=== PATIENT | male | born 1955 | race Caucasian/White ===

== ENCOUNTER → 2019-01-07 | Outpatient (REF) | payer OTHER ==
[~2019-01-07] MED LIST: ASPIRIN EC81 MG PO; ATENOLOL50 MG PO; BUMETANIDE1 MG PO; CIPROFLOXACN500 MG PO; DILAUDID 2MG2 MG/TA1 PO; FLOMAX0.4 M1 PO; GLIPIZIDE10 MG PO; HUMULIN N1 ML SC; JANTOVEN2 MG PO; JANTOVEN2.5 MG PO; KLOR-CON 1010 ME1 PO; LANOXIN0.25 MG PO; LOPID600 MG PO; LOVASTATIN20 MG PO; METFORMIN850 MG PO; NIACIN500 MG PO; NOVOLIN R IJ; OMEPRAZOLE20 MG PO; PERCOGESI1 PO; RANITIDINE150 MG PO; SPIRONOLACT25 MG PO; TERAZOSIN1 MG PO
[2019-01-07 12:15] LABS: INTERNATIONAL NORMALIZED RATIO 1.1 RATIO (0.7-1.3); PROTHROMBIN TIME 11.6 SECONDS (9.0-12.5)
== END | disposition home or self-care (01) | DRG 950 ==
LOC: LABSPEC 11:51
PROVIDERS: ATTEND Internal Medicine
DX: Z51.81 Encounter for therapeutic drug level monitoring (principal); Z79.01 Long term (current) use of anticoagulants

== ENCOUNTER 2020-10-02 08:15 | Inpatient (IN) | payer OTHER ==
[~2020-10-02] VITALS: Ht 162.6 cm; Wt 100.0 kg
--- NOTE | 2020-10-02 08:15 | NUR ---
PATIENT TO ROOM VIA EMS UNDERGUARD AND PHYSICIAN AT BEDSIDE FOR EVAL
[2020-10-02 08:56] LABS: IMMATURE GRANULOCYTES 0.5 % (0.0-5.0); MEAN CELL VOLUME 85.4 fL CALC (80.0-100.0); MEAN CORPUSCULAR HGB 28.5 pG CALC (26.0-32.0); MEAN CORPUSCULAR HGB CONC 33.4 g/dL CAL (32.0-36.0); NEUT# 6.37 thou/uL (1.82-7.42); RED BLOOD COUNT 4.45 mill/uL (4.70-6.10); RED CELL DISTRI WIDTH 13.2 % (11.5-15.5)
[2020-10-02 08:58] LABS: HEMOGLOBIN 12.7 g/dl (14.0-18.0)
[2020-10-02 09:12] LABS: ANION GAP 12 (6-22 (CALC)); BUN 17 mg/dL (8-23); BUN/CREATININE RATIO 17 (12-20 (CALC)); CARBON DIOXIDE 24 mmol/l (22-30); CHLORIDE 106 mmol/l (95-108); GFR > 60 ML/MIN (>=60 (CALC)); GFR FOR AFR.AMER. > 60 ML/MIN (>=60 (CALC)); POTASSIUM 3.4 mmol/l (3.5-5.1); SGOT/AST 57 u/l (19-48); SODIUM 140 mmol/l (137-146)
[2020-10-02 09:14] LABS: ALBUMIN 3.6 g/dL (3.2-5.0); ALKALINE PHOSPHATASE 64 u/l (38-126); BILIRUBIN, TOTAL 0.8 mg/dL (0.0-1.4); TOTAL PROTEIN 6.8 g/dL (6.3-8.2)
--- NOTE | 2020-10-02 09:30 | NUR ---
PT ARRIVED BY EMS WITH SOB. PT WAS ON NRB AT 15L OF O2. LUNGS WHEEZING BILAT. DENIES ANY CHEST PAIN. STATES HE WAS DX YEST WITH COVID. AFIBRILE. INCREASED SOB WITH EXCERTION. BREATHING AT 23. A 98% ON O2.
[2020-10-02] MEDS ORDERED: GABAPENTIN250 MG/5 M PO (10:12)
[2020-10-02] MEDS ORDERED: TOPROL XL25 M1 PO (10:12)
[2020-10-02] MEDS ORDERED: BUMETANIDE1 MG PO (10:13)
[2020-10-02] MEDS ORDERED: WARFARIN3 MG PO (10:13)
[2020-10-02] MEDS ORDERED: ATORVASTATIN CA20 MG PO (10:13)
[2020-10-02] MEDS ORDERED: FENOFIBRATE160 MG PO (10:13)
[2020-10-02] MEDS ORDERED: DECADRON6 MG PO (10:14)
[2020-10-02] MEDS ORDERED: MOTRIN400 MG/TAB PO (10:15)
[2020-10-02] MEDS ORDERED: MUCUS & CH100 MG/5 M PO (10:15)
--- NOTE | 2020-10-02 10:28 | NUR ---
CALLED ARLETTE FOR REPORT, NURSE WITH A PT AT THE MOMENT
[2020-10-02] MEDS ORDERED: HUMULIN 70/30 SC ×2 (10:36→10:44)
--- NOTE | 2020-10-02 11:13 | NUR ---
GAVE REPORT TO NURSE IN MED SURG
--- NOTE | 2020-10-02 11:35 | NUR ---
PT ARRIVED TO MS2 VIA STRETCHER ACCOMPANIED BY NURSE AND GUARD, NO SIGNS OF DISTRESS NOTED, RESP EVEN AND UNLABORED. ORIENTED PT TO ROOM AND CALL LIGHT, DISCUSSED POC, PT [place], MEDICATED PER MAR. PT IS 8L HI VINOD NC HUMIDIFIED. ADMISSION ASSESSMENT COMPLETED, CALL LIGHT IN REACH,CONTINUE TO MONITOR.
--- NOTE | 2020-10-02 11:48 | NUR ---
PT TRANSPORTED TO [facility] STABLE AND IN NO DISTRESS AND I WAS ACCOMPANIED BY OFFICERS WHO WAS AT HIS BEDSIDE THE WHOLE VISIT. CARE ASSUMED TO NURSE Admission Note Report Given to: Transported by: Wheelchair X Stretcher Transported with: X Nurse Transporter X Patent IV X O2 X Print Journalist Location: ICU X MS2
[2020-10-02 12:04] VITALS: BP 123/76
[2020-10-02 12:18] LABS: INTERNATIONAL NORMALIZED RATIO 3.7 RATIO (0.7-1.3); PROTHROMBIN TIME 34.4 SECONDS (9.0-12.5)
[2020-10-02 15:10] VITALS: BP 124/72
--- NOTE | 2020-10-02 16:00 | NUR ---
PT VOICES NO NEEDS OR COMPLAINTS AT THIS TIME, CALL LIGHT IN REACH,CONTINUE TO MONITOR.
--- NOTE | 2020-10-02 19:30 | NUR ---
PT AWAKE RESTING IN BED WATCHING T.V. PT IS ALERT AND ORIENTED X4. O2 N/C ON HIGH VINOD AT 8L. O2 SAT 97%. NO DISTRESS NOTED. PT DOES BECOME SHORT OF BREATH WITH EXERTION. LUNGS REVEAL WHEEZES AND DIMINISHED BREATH SOUNDS. ABD SOFT AND NONDISTENDED WITH BOWEL SOUNDS PRESENT. NO LOWER EXT EDEMA NOTED. PEDAL PULSES PALPATED BILAT. TELE AFIB HR CONTROLLED. IV SITE PATENT IN LEFT A.C WITH NSS AT 100CC/HR. PT DENIES ANY DISCOMFORT OR SHORTNESS OF BREATH . WILL CONTINUE TO CLOSELY MONITOR. CUFFED TO THE BED. GUARD AT BEDSIDE. WILL CONTINUE TO CLOSELY MONITOR. FREQUENT ROUNDS MADE. CALL LUGO WITHIN REACH.
[2020-10-02 20:25] VITALS: BP 130/76
--- NOTE | 2020-10-02 22:30 | NUR ---
RESTING IN BED WATCHING T.V. RESP EVEN AND UNLABORED. NO DISTRESS NOTED. IV SITE IS PATENT. FREQUENT ROUNDS MADE. CALL LUGO WITHIN REACH.
[2020-10-03 00:15] VITALS: BP 131/92
--- NOTE | 2020-10-03 00:30 | NUR ---
RESTING IN BED WITH EYES CLOSED. RESP EVEN AND UNLABORED. NO DISTRESS NOTED. O2 NC HIGH VINOD AT 8L. IV SITE PATENT. FREQUENT ROUNDS MADE. CALL LUGO WITHIN REACH.
--- NOTE | 2020-10-03 02:35 | NUR ---
PT AWAKE RESTING IN BED. RESP EVEN AND UNLABORED. NO DISTRESS NOTED . PT GIVEN A WARM BLANKET. IV SITE PATENT WITH NO REDNESS OR SWELLING. GUARD AT BEDSIDE. PT DENIES ANY DIFFICULTY BREATHING OR SHORTNESS OF BREATH. WILL CONTINUE TO CLOSELY MONITOR. FREQUENT ROUNDS MADE. CALL LUGO WITHIN REACH.
[2020-10-03 03:50] VITALS: BP 135/72
--- NOTE | 2020-10-03 04:15 | NUR ---
RESTING IN BED WITH EYES CLOSED. RESP EVEN AND UNLABORED. NO DISTRESS NOTED. IV SITE PATENT. ASSESSMENT UNCHANGED. FREQUENT ROUNDS MADE. CALL LUGO WITHIN REACH.
--- NOTE | 2020-10-03 05:50 | NUR ---
PT AWAKE RESTING IN BED. ASSESSMENT UNCHANGED. NO DISTRESS NOTED. IV SITE PATENT. DENIES ANY DISCOMFORT. FREQUENT ROUNDS MADE. CALL LUGO WITHIN REACH.
[2020-10-03 05:56] LABS: HEMATOCRIT 36.8 % (39.0-50.0); HEMOGLOBIN 11.8 g/dl (14.0-18.0); IMMATURE GRANULOCYTES 0.6 % (0.0-5.0); MEAN CELL VOLUME 88.9 fL CALC (80.0-100.0); MEAN CORPUSCULAR HGB 28.5 pG CALC (26.0-32.0); MEAN CORPUSCULAR HGB CONC 32.1 g/dL CAL (32.0-36.0); NEUT# 5.13 thou/uL (1.82-7.42); RED BLOOD COUNT 4.14 mill/uL (4.70-6.10); RED CELL DISTRI WIDTH 13.4 % (11.5-15.5)
[2020-10-03 06:22] LABS: ALBUMIN 3.1 g/dL (3.2-5.0); ALKALINE PHOSPHATASE 54 u/l (38-126); ANION GAP 11 (6-22 (CALC)); BILIRUBIN, TOTAL 0.7 mg/dL (0.0-1.4); BUN 19 mg/dL (8-23); BUN/CREATININE RATIO 20 (12-20 (CALC)); CARBON DIOXIDE 25 mmol/l (22-30); CHLORIDE 108 mmol/l (95-108); CREATININE 0.9 mg/dL (0.7-1.3); GFR > 60 ML/MIN (>=60 (CALC)); GFR FOR AFR.AMER. > 60 ML/MIN (>=60 (CALC)); POTASSIUM 4.3 mmol/l (3.5-5.1); SGOT/AST 44 u/l (19-48); SODIUM 140 mmol/l (137-146); TOTAL PROTEIN 5.9 g/dL (6.3-8.2)
[2020-10-03 07:00] LABS: PROTHROMBIN TIME 46.6 SECONDS (9.0-12.5)
--- NOTE | 2020-10-03 07:00 | NUR ---
CRITICAL LAB RESULT RECEIVED FROM ED IN LAB. INR 5.0. REDRAW REQUESTED AND ORDER PLACED IN COMPUTER DUE TO INR 3.7 ON 10/02. WILL INFORM DR HALL OF LAB AND REDRAW ORDERED. [facility] NURSE DENISHA DELEON AWARE.
[2020-10-03 08:26] LABS: INTERNATIONAL NORMALIZED RATIO 4.9 RATIO (0.7-1.3)
--- NOTE | 2020-10-03 08:46 | NUR ---
RECEIVED A CLL FROM SÁNCHEZ IN LAB PT/INR 45.0/4.9 WILL HOLD COUMADIN FOR TODAY
[2020-10-03 09:10] VITALS: BP 144/79
--- NOTE | 2020-10-03 09:10 | NUR ---
ASSESSMENT IS COMPLETED: IV SITE IS FREE FROM REDNESS OR EDEMA. HR IS REG,PULSES ARE STRONGX4 ABD IS SOFT WITH ACTIVE BS. BREATH SOUNDS ARE WHEEZING AND DIMINISHED. TELE MONITOR # [id number] READING A FIB 95
--- NOTE | 2020-10-03 09:26 | NUR ---
SPOKEW ITH NURSE RAFAELA AT [facility] WITH AN UPDATE
[2020-10-03 10:48] VITALS: BP 139/67
--- NOTE | 2020-10-03 12:11 | NUR ---
PT IS RELAXING IN BED WITH NO DISTRESS NOTED. IV SITE IS FREE FROM REDNESS OR EDEMA. GUARD IS OUTSIDE OF THE ROOM.
[2020-10-03 15:10] VITALS: BP 112/71
--- NOTE | 2020-10-03 16:00 | NUR ---
IV SITE IS FREE FROM REDNESS OR EDEMA. PT IS RELAXING IN BED WITH NO DISTRESS NOTED.
[2020-10-03 20:00] VITALS: BP 123/77
--- NOTE | 2020-10-03 20:33 | NUR ---
PT RESTING IN BED, NO SIGNS OF DISTRESS NOTED, RESP EVEN AND UNLABORED. PT ALERT AND ORIENTED X3, DISCUSSED POC, PT C/O PAIN MEDICATED WITH TYLENOL, PT ON 8L HI VINOD NC HUMIDIFIED SATS 94%. ASSESSMENT COMPLETED, GUARD AT BEDSIDE, CALL LIGHT IN REACH,CONTINUE TO MONITOR.
[2020-10-04] VITALS: BP 150/82
--- NOTE | 2020-10-04 | NUR ---
PT RESTING IN BED, VITALS OBTAINED, PT VOICES NO NEEDS OR COMPLAINTS AT THIS TIME. CALL LIGHT IN REACH,CONTINUE TO MONITOR.
[2020-10-04 04:00] VITALS: BP 112/72
--- NOTE | 2020-10-04 04:00 | NUR ---
AM LABS OBTAINED, PT VOICES NO NEEDS OR COMPLAINTS AT THIS TIME. CALL LIGHT IN REACH,CONTINUE TO MONITOR.
[2020-10-04 05:09] LABS: PROTHROMBIN TIME 44.9 SECONDS (9.0-12.5)
[2020-10-04 05:18] LABS: INTERNATIONAL NORMALIZED RATIO 4.8 RATIO (0.7-1.3)
--- NOTE | 2020-10-04 07:00 | NUR ---
REPORT RECEIVED FROM PANCHO AVILES.
[2020-10-04 07:56] VITALS: BP 128/84
--- NOTE | 2020-10-04 08:00 | NUR ---
PT RESTING IN SEMI FOWLERS POSITION WITH X1 GUARD OUTSIDE ROOM AND RIGHT ANKLE SHACKLED TO BEDSIDE;VS OBTAINED AND ASSESSMENT COMPLETED;PT DENIES ANY CURRENT PAIN BUT DOES REPORT "SORENESS", PAIN SCALE AND REPORTING EDUCATED;RESPIRATIONS SHALLOW ON O2 @ 8L HIGH FLOW WITH EXERTIONAL SOB NOTED;NON-PRODUCTIVE COUGH;ABDOMEN SOFT ON PALPATION AND ACTIVE IN ALL 4 QUADRANTS;STRONG PEDAL PULSES;SKIN INTACT;TELE MONITORING IN PLACE;EMS #22G TO LAC FLUSHED AND PATENT,SITE APPEARS HEALTHY AND ABX STARTED AT THIS TIME PER ORDER;PT EDUCATED ON IV SITE EXPIRATION AND VERBALIZES UNDERSTANDING;ACCUCHECK 171;PT REMAINS IN AIR/CONTACT PRECAUTIONS DUE TO COVID19 DX;PT DENIES ANY ADDITIONAL NEEDS AT THIS TIME AND IS ENCOURAGED TO CALL FOR ASSISTANCE IF NEEDED;FALL PRECAUTIONS REMAIN IN PLACE WITH BED IN THE LOWEST POSITION AND CALL LIGHT IN REACH;WILL CONTINUE TO MONITOR
--- NOTE | 2020-10-04 08:34 | NUR ---
AT BEDSIDE DISCUSSING POC.
--- NOTE | 2020-10-04 11:25 | NUR ---
PT OOB RESTING IN RECLINER;RESPIRATIONS REMAIN SHALLOW ON O2 @ 8L HIGH FLOW NC;PT REPORTS GENERALIZED PAIN RATING 6/10 ON THE PAIN SCALE AND REQUESTS PAIN MEDICATION,PT MEDICATED WITH PRN ULTRAM 50MG PO AND ROBITUSSIN 200MG PO FOR COUGH AT THIS TIME;TELE MONITORING IN PLACE;IV SITE REMAINS PATENT TO LAC;ACCUCHECK 193;PT DENIES ANY ADDITIONAL NEEDS AND IS ENCOURAGED TO CALL FOR ASSISTANCE IF NEEDED;FALL PRECAUTIONS IN PLACE WITH BED IN THE LOWEST POSITION AND CALL LIGHT IN REACH;WILL CONTINUE TO MONITOR
[2020-10-04 12:00] VITALS: BP 114/30
--- NOTE | 2020-10-04 14:36 | NUR ---
PT REPORTS GENERALIZED PAIN RATING 5/10 ON THE PAIN SCALE AND REQUESTS PRN PAIN MEDICATION, PT MEDICATED WITH TYLENOL 650MG PO AT THIS TIME;WILL CONTINUE TO MONITOR FOR EFFECTIVENESS
--- NOTE | 2020-10-04 16:25 | NUR ---
PT OOB RESTING IN RECLINER WITH SHACKLE TO RLE AND GUARD OUTSIDE DOOR;RESPIRATIONS REMAIN EVEN AND UNLABORED ON O2 @ 8L VIA HIGH FLOW NC O2 SATS 98% AT THIS TIME;OXYGEN TITRATED TO 6L AT THIS TIME AND PT O2 SATS REMAIN AT 97%;#22G STARTED TO LEFT HAND ON 1ST ATTEMPT BY THIS WRITTER AND PT TOLERATED WELL;EMS #20G TO LAC REMOVED WITH CATHETER INTACT DUE TO EXPIRATION DATE;TELE MONITORING IN PLACE;FRESH WATER PROVIDED PER REQUEST;PT DENIES ANY ADDITIONAL NEEDS AND IS ENCOURAGED TO CALL FOR ASSISTANCE IF NEEDED;FALL PRECAUTIONS REMAIN IN PLACE WITH CALL LIGHT IN REACH;WILL CONTINUE TO MONITOR
[2020-10-04 16:39] VITALS: BP 139/72
--- NOTE | 2020-10-04 16:55 | NUR ---
PT O2 SATS REMAIN @ 97% ON O2 @ 6L HIGH FLOW NC, RESPIRATIONS EVEN AND UNLABORED;O2 TITRATED TO 4L HIGH FLOW NC AT THIS TIME;WILL CONTINUE TO MONITOR FOR EFFECTIVENESS
--- NOTE | 2020-10-04 19:15 | NUR ---
PT SITTING IN CHAIR AT BEDSIDE, NO SIGNS OF DISTRESS NOTED, RESP EVEN AND UNLABORED. PT ALERT AND ORIENTED X3, DISCUSSED POC. PT AT 4L HI VINOD SATS 98% PT TITRATED DOWN TO 2L HI VINOD SATS 95%. PT VOICES NO NEEDS OR COMPLAINTS AT THIS TIME, ASSESSMENT COMPLETED, CALL LIGHT IN REACH,CONTINUE TO MONITOR.
[2020-10-04 19:50] VITALS: BP 141/77
[2020-10-05] VITALS (7 sets, daily range): BP systolic 114–145; BP diastolic 50–85
--- NOTE | 2020-10-05 | NUR ---
PT RESTING IN BED WITH EYES CLOSED, NO SIGNS OF DISTRESS NOTED, RESP EVEN AND UNLABORED, CALL LIGHT IN REACH,CONTINUE TO MONITOR.
--- NOTE | 2020-10-05 05:16 | NUR ---
PT RESTING IN BED WITH EYES CLOSED, NO SIGNS OF DISTRESS NOTED, RESP EVEN AND UNLABORED. CALL LIGHT IN REACH,CONTINUE TO MONITOR.
[2020-10-05 05:18] LABS: HEMATOCRIT 37.5 % (39.0-50.0); HEMOGLOBIN 12.4 g/dl (14.0-18.0); MEAN CELL VOLUME 88.2 fL CALC (80.0-100.0); MEAN CORPUSCULAR HGB 29.2 pG CALC (26.0-32.0); MEAN CORPUSCULAR HGB CONC 33.1 g/dL CAL (32.0-36.0); RED BLOOD COUNT 4.25 mill/uL (4.70-6.10); RED CELL DISTRI WIDTH 13.2 % (11.5-15.5)
[2020-10-05 05:35] LABS: PROTHROMBIN TIME 32.2 SECONDS (9.0-12.5)
[2020-10-05 05:38] LABS: ALBUMIN 3.2 g/dL (3.2-5.0); ALKALINE PHOSPHATASE 54 u/l (38-126); ANION GAP 12 (6-22 (CALC)); BILIRUBIN, TOTAL 0.8 mg/dL (0.0-1.4); BUN 21 mg/dL (8-23); BUN/CREATININE RATIO 23 (12-20 (CALC)); CARBON DIOXIDE 27 mmol/l (22-30); CHLORIDE 106 mmol/l (95-108); CREATININE 0.9 mg/dL (0.7-1.3); GFR > 60 ML/MIN (>=60 (CALC)); GFR FOR AFR.AMER. > 60 ML/MIN (>=60 (CALC)); POTASSIUM 4.2 mmol/l (3.5-5.1); SGOT/AST 36 u/l (19-48); SODIUM 141 mmol/l (137-146)
[2020-10-05 06:00] LABS: INTERNATIONAL NORMALIZED RATIO 3.4 RATIO (0.7-1.3)
--- NOTE | 2020-10-05 07:30 | NUR ---
REPORT RECEIVED FROM PANCHO AVILES. PT SITTING UPRIGHT IN BED. DENIES PAIN. REPORTING OF CONCERNS ENCOURAGED. PLAN OF CARE DISCUSSED. I.S. USE ENCOURAGED. O2 @ 2L, NO RESPIRATORY DISTRESS. TELE UNIT IN PLACE. PT. REPORTS NON-PRODUCTIVE COUGH. CALL LIGHT REVIEWED AND IN REACH, PT STATES UNDERSTANDING.
--- NOTE | 2020-10-05 11:45 | NUR ---
RADIOLOGY AT BEDSIDE FOR PORTABLE CXR.
--- NOTE | 2020-10-05 12:43 | NUR ---
DR. DAVIS AND BRYANT PEACOCK IN TO SEE PT. AT THIS TIME. PLAN OF CARE UPDATED.
--- NOTE | 2020-10-05 17:01 | NUR ---
PT SITTING UPRIGHT IN BED. DENIES PAIN. REPORTING OF CONCERNS ENCOURAGED. NO COMPLAINTS AT THIS TIME.
--- NOTE | 2020-10-05 19:30 | NUR ---
PATIENT RESTING IN BED IN HIGH FOWLERS POSITION WITH O2 VIA NASAL CANNULA IN PLACE AT 2LPM-O2 SAT-94%. NO COMPLAINTS AT THIS TIME. VOIDING QS IN URINAL. CALL LIGHT IN REACH. WILL CONT TO MONITOR.
--- NOTE | 2020-10-05 21:30 | NUR ---
PATIENT RESTING IN BED AT THIS TIME IN HIGH FOWLERS POSITION-AWAKE ALERT AND ORIENTEDX3 WITH O2 VIA NASAL CANNULA IN PLACE AT 2LPM. PATIENT WITH NON-PRODUCTIVE COUGH. TELE MONITOR IN PLACE. SALINE LOCK TO LEFT HAND INTACT AND FLUSHED. PATIENT C/O CHEST PAIN AFTER COUGHING-MEDICATED WITH ULTRAM FOR 6/10 PAIN IN CHEST. VOIDING QS IN URINAL AT BEDSIDE AND STATES THAT HE HAD A BM TODAY. PATIENT IS SHACKELED TO BED-LEFT ANKLE. SHEREE IN HALLWAY AT THIS TIME. ENCOURAGE USE OF IS-ABLE TO DEMONSTRATE PROPER USE OF THE DEVICE.SAFETY PRECAUTION REINFORCED. PATIENT IN NEG PRESSURE ROOM ON ISOLATION FOR COVID. CALL LIGHT IN REACH. WILL CONT TO MONITOR.
[2020-10-06 03:40] VITALS: BP 130/77
--- NOTE | 2020-10-06 04:23 | NUR ---
PATIENT RESTING IN BED WITH HOB ELEVATED AND EYES CLOSED. APPEARS SLEEPING WITH O2 VIA NASAL CANNULA IN PLACE. TELE MONITOR IN PLACE. RESPS ARE EVEN AND UNLABORED. SALINE LOCK REMAINS INTACT TO LEFT HAND. REMAINS IN ON ISOLATION IN NEG PRESSURE ROOM FOR COVID. SHEREE OUTSIDE OF PATIENT DOOR. CALL LIGHT IN REACH. WILL CONT TO MONITOR.
[2020-10-06 05:41] LABS: HEMATOCRIT 37.1 % (39.0-50.0); HEMOGLOBIN 12.1 g/dl (14.0-18.0); IMMATURE GRANULOCYTES 3.3 % (0.0-5.0); MEAN CELL VOLUME 87.9 fL CALC (80.0-100.0); MEAN CORPUSCULAR HGB 28.7 pG CALC (26.0-32.0); MEAN CORPUSCULAR HGB CONC 32.6 g/dL CAL (32.0-36.0); NEUT# 4.55 thou/uL (1.82-7.42); RED BLOOD COUNT 4.22 mill/uL (4.70-6.10); RED CELL DISTRI WIDTH 13.2 % (11.5-15.5)
[2020-10-06 06:03] LABS: INTERNATIONAL NORMALIZED RATIO 2.8 RATIO (0.7-1.3); PROTHROMBIN TIME 26.9 SECONDS (9.0-12.5)
[2020-10-06 06:07] LABS: ALKALINE PHOSPHATASE 51 u/l (38-126); ANION GAP 10 (6-22 (CALC)); BILIRUBIN, TOTAL 0.8 mg/dL (0.0-1.4); BUN 20 mg/dL (8-23); BUN/CREATININE RATIO 23 (12-20 (CALC)); C-REACTIVE PROTEIN 1.4 mg/dL (0-0.9); CARBON DIOXIDE 27 mmol/l (22-30); CHLORIDE 105 mmol/l (95-108); CREATININE 0.9 mg/dL (0.7-1.3); GFR > 60 ML/MIN (>=60 (CALC)); GFR FOR AFR.AMER. > 60 ML/MIN (>=60 (CALC)); POTASSIUM 4.1 mmol/l (3.5-5.1); SGOT/AST 34 u/l (19-48); SODIUM 138 mmol/l (137-146); TOTAL PROTEIN 5.7 g/dL (6.3-8.2)
[2020-10-06 10:40] VITALS: BP 110/65
[2020-10-06] MEDS ORDERED: OXY1 (11:19)
[2020-10-06] MEDS ORDERED: DEXAMETHASON6 MG PO (14:19)
== END 2020-10-06 16:15 | disposition designated cancer center or children's hospital (05) | DRG 177 ==
LOC: ED 08:15 → ED-I 09:25 → ED 10:06 → MS2 10:07
PROVIDERS: Family Medicine; Nurse Practitioner Family; ADMIT Internal Medicine; ATTEND Internal Medicine
PROC: XW033E5 Introduction of Remdesivir Anti-infective into Peripheral Vein, Percutaneous Approach, New Technology Group 5 (ICD-10-PCS; principal; 2020-10-02)
DX: U07.1 COVID-19 (principal); J12.89 Other viral pneumonia; J96.00 Acute respiratory failure, unspecified whether with hypoxia or hypercapnia; I48.91 Unspecified atrial fibrillation; I10 Essential (primary) hypertension; E11.40 Type 2 diabetes mellitus with diabetic neuropathy, unspecified; E66.9 Obesity, unspecified; Z68.37 Body mass index [BMI] 37.0-37.9, adult; Z79.01 Long term (current) use of anticoagulants; Z79.4 Long term (current) use of insulin; Z79.899 Other long term (current) drug therapy